=== PATIENT | female | born 1985 | race Caucasian/White ===

== ENCOUNTER → 2017-08-11 | Outpatient (CLI) | payer MEDICARE, MEDICAID ==
[~2017-08-11] MED LIST: AUG875 PO; BACDS PO; ETHI1TAB16 PO; ETHI1TAB26 PO; LEVO88TA42 PO; LEVO88TA45 PO; MULT-775 PO; OMEP-218 PO; THYR15TA6 PO
== END ==
LOC: LAB 13:47
PROVIDERS: ATTEND Surgery
DX: L72.11 Pilar cyst (principal)
CPT/HCPCS: 88305